=== PATIENT | female | born 1950 | race Caucasian/White ===

== ENCOUNTER 2019-04-10 14:13 | Outpatient (CLI) | payer MEDICARE, OTHER ==
--- NOTE | 2019-04-10 15:50 | ULT ---
LEFT BREAST ULTRASOUND: Date: 04/10/19 HISTORY: Abnormal mammogram. FINDINGS: Correlation is made with the screening mammograms of 04/03/19. Sonographic evaluation of the retroareolar region of the left breast demonstrates a 6 mm cyst corresp onding to the mammographic finding. IMPRESSION: BI-RADS Category 2 - Benign findings. Return to annual mammographic screening. POS: OFF
--- NOTE | 2019-04-10 15:56 | ULT ---
RIGHT BREAST ULTRASOUND: HISTORY: Abnormal mammogram. CORRELATION: Mammograms from 04/03/2019. FINDINGS: There is a 1 cm cyst between the 9 and 10 o'clock positions of the right breast corresponding to one of the mammographic findings. There is a solid mass with shadowing between the 11 and 12 o'clock positions of the right breast, burton suring about 7 mm, with adjacent architectural distortion, corresponding to the mammographic finding. IMPRESSION: BI-RADS category 4 - suspicious abnormality. Recommend ultrasound guided biopsy of the solid mass between the 11 and 12 o'clock positions of the r ight breast. Discussed in person with the patient at 2:45 p.m. CODE CR POS: OFF
== END 2019-04-10 14:14 | disposition home or self-care (01) ==
LOC: BICULT 14:13
PROVIDERS: ATTEND Obstetrics & Gynecology
DX: N63.10 Unspecified lump in the right breast, unspecified quadrant (principal); N63.20 Unspecified lump in the left breast, unspecified quadrant

== ENCOUNTER 2019-04-24 14:03 | Outpatient (CLI) | payer MEDICARE, OTHER ==
--- NOTE | 2019-04-24 14:18 | MMO ---
Right Breast MAMMO Unilat Diag DDI RT. CLINICAL HISTORY: Patient is 68 years old and is seen for diagnostic exam. The patient has a history of right Ultrasound Guided Core Biopsy in April,. VIEWS: The views performed were: right craniocaudal with tomosynthesis; right mediolateral oblique with tomosynthesis; and right mediolateral with tomosynthesis. FILMS COMPARED: The present examination has been compared to prior imaging studies performed at [facility] on 04/03/2019, and at [facility] on 04/10/2019. This study has been interpreted with the assistance of computer-aided detection. MAMMOGRAM FINDINGS: The breast is heterogeneously dense, which could obscure a lesion on mammography. There is a new biopsy clip seen in the right breast. IMPRESSION: NEW BIOPSY CLIP IN THE RIGHT BREAST IS CONFIRMED UTILIZING POST PROCEDURE MAMMOGRAM. THE RESULTS OF THIS EXAM WERE SENT TO THE PATIENT. MAMMOGRAPHY NOTE: 1. A negative mammogram report should not delay a biopsy if a dominant of clinically suspicious mass is present. 2. Approximately 10% to 15% of breast cancers are not detected by mammography. 3. Adenosis and dense breasts may obscure an underlying neoplasm. Reported by: CHARLEY MAO MD Electonically Signed: [id number]
== END 2019-04-24 14:04 | disposition home or self-care (01) ==
LOC: BICMAMMO 14:03
PROVIDERS: ATTEND Specialist
DX: N63.10 Unspecified lump in the right breast, unspecified quadrant (principal)